=== PATIENT | female | born 1980 | race Caucasian/White ===

== ENCOUNTER → 2018-07-29 | Outpatient (CLI) | payer OTHER ==
--- NOTE | 2018-07-29 13:10 | US ---
EXAMINATION TYPE: US OB anatomy transabd DATE OF EXAM: 07/29/2018 COMPARISON: NONE HISTORY: O09.521 MATERNAL GREATER THAN 34 PREV Anatomy scan at 19 weeks at another facility . Advanced maternal age TECHNIQUE: Transabdominal (TA) EXAM MEASUREMENTS: GESTATIONAL AGE / DATING Physician Established: (28 weeks/1 days) EDC: 10/20/2018 Dates by First Scan: No previous at this facility Dates by Current Scan for: (28 weeks/6 days) EDC: 10/15/2018 SURVEY IUP: Single PLACENTA: Fundal PREVIA: No previa SATHYA: 12.5 cm Normal CERVICAL LENGTH (transabdominal: norm > 3.0cm): 3.8 cm BIOMETRY PRESENTATION: Breech LIE: Transverse lie with head maternal right BPD: 7.5 cm 29 weeks / 6 days HC: 27.8 cm 30 weeks / 3 days AC: 24.5 cm 28 weeks / 5 days FL: 5.3 cm 28 weeks / 2 days ESTIMATED WEIGHT IN GRAMS: 1296 grams ESTIMATED WEIGHT IN LBS/OZ: 2 lbs. 14 oz. WEIGHT PERCENTAGE BASED ON ESTABLISHED DATE: 65.6 % HC/AC: 1.13 Normal FL/AC: 21.78 Normal HEART RATE: 135 bpm RHYTHM: Normal ANATOMY SEEN (within normal limits): * Lateral Vent (< 1 cm) 0.4 cm * Cisterna Magna (< 1.1 cm) 0.5 cm * Nuchal Fold (< 0.6 cm) 0.4 cm * Cerebellum (varies with age) 3.3 cm Choroid Plexus (bilateral) Midline Falx Cavus Septi Pellucidi Four Chamber Heart Outflow tracts: LVOT/RVOT Stomach Situs Nose / Lips Diaphragm Kidneys (bilateral) Bladder Arms (bilateral) Legs (bilateral) Three Vessel Cord ANATOMY NOT SEEN due to position: Longitudinal Spine Transverse Spine Cord insert IMPRESSION: Viable IUP, measurements consistent with dates. Patient is scheduled for an OB call back for spine an d cord insert on 08/12/18.
== END | disposition home or self-care (01) ==
LOC: RADUSWWP 10:58
PROVIDERS: ATTEND Obstetrics & Gynecology
DX: O09.521 Supervision of elderly multigravida, first trimester (principal); Z3A.00 Weeks of gestation of pregnancy not specified
CPT/HCPCS: 76811

== ENCOUNTER → 2018-08-12 | Outpatient (CLI) | payer OTHER ==
--- NOTE | 2018-08-12 13:22 | US ---
EXAMINATION TYPE: US OB Call Back DATE OF EXAM: 08/12/2018 COMPARISON: NONE CLINICAL HISTORY: OB CALLBACK. spine and cord insert pics GESTATIONAL AGE / DATING Dates by Initial Survey Scan: (30 weeks/1 days) EDC: 10/20/2019 HEART RATE: 154 bpm RHYTHM: Normal ANATOMY SEEN (second anatomic survey look): Cord Insert : yes Longitudinal Spine: yes Transverse Spine: yes IMPRESSION: Call back for documentation of unremarkable appearing cord insertion, longitudinal spine, and transve rse spine in this single live intrauterine .
== END | disposition home or self-care (01) ==
LOC: RADUSWWP 12:14
PROVIDERS: ATTEND Obstetrics & Gynecology
DX: Z53.9 Procedure and treatment not carried out, unspecified reason (principal)

== ENCOUNTER → 2018-09-15 | Outpatient (CLI) | payer OTHER ==
--- NOTE | 2018-09-15 11:47 | US ---
EXAMINATION TYPE: US OB >= 14 wk fetus DATE OF EXAM: 09/15/2018 COMPARISON: 08/12/2018 CLINICAL HISTORY: Large for Dates, 3rd Trimester O36.63X0 TECHNIQUE: Transabdominal (TA) GESTATIONAL AGE / DATING Physician Established: (35 weeks/0 days) EDC: 10/20/2018 Dates by LMP: unsure Dates by First Scan: (35 weeks/0 days) EDC: 10/20/2018 Dates by Current Scan: (35 weeks/6 days) EDC: 10/14/2018 Beta HCG (if available): na SURVEY IUP: Single PLACENTA: Fundal PREVIA: No Previa SATHYA: 19 cm Normal CERVICAL LENGTH (transabdominal: norm > 3.0cm): 4.5 cm BIOMETRY PRESENTATION: Vertex LIE: Longitudinal BPD: 9.0 cm 36 weeks / 3 days HC: 32.3 cm 36 weeks / 4 days AC: 31.4 cm 35 weeks / 2 days FL: 6.8 cm 35 weeks / 1 days ESTIMATED WEIGHT IN GRAMS: 2694 grams ESTIMATED WEIGHT IN LBS/OZ: 5 lbs. 15 oz. WEIGHT PERCENTAGE BASED ON ESTABLISHED DATES: 62% HC/AC: 1.0 Normal FL/AC: 22 Normal HEART RATE: 148 bpm RHYTHM: Normal No anatomy assessment was not performed. IMPRESSION: Findings compatible with a 35 week 6 day gestation with an EDC of 10/14/2018 and heart rate of 148 bp m.
== END | disposition home or self-care (01) ==
LOC: RADUSWWP 10:52
PROVIDERS: ATTEND Obstetrics & Gynecology
DX: O36.63X0 Maternal care for excessive fetal growth, third trimester, not applicable or unspecified (principal); Z3A.35 35 weeks gestation of pregnancy
CPT/HCPCS: 76805

== ENCOUNTER 2018-10-13 06:00 | Inpatient (IN) | payer OTHER ==
[2018-10-13] MEDS ORDERED: METHYLERGONOVINE 0.2 MG/ML 1 ML AMP IM PRN (06:21)
[2018-10-13] MEDS ORDERED: TERBUTALINE 1 MG/ML VIAL SQ PRN (06:21)
[2018-10-13] MEDS ORDERED: CARBOPROST TROMETHAMINE 250 MCG/ML 1 ML AMP IM PRN (06:21)
[2018-10-13] MEDS ORDERED: OXYTOCIN 10 UNIT/ML 1 ML VIAL IM PRN (06:21)
[2018-10-13] MEDS ORDERED: LIDOCAINE 0.5% (PF) 5 MG/ML (50 ML SDV) SQ PRN (06:21)
[2018-10-13 06:32] VITALS: BMI 30.2
[2018-10-13] MEDS: LACTATED RINGERS 1,000 ML IV SCH ×3 (06:34→14:51)
[2018-10-13 06:41] LABS: Basophils # (A) 0.1 k/uL (0-0.2); Basophils % (A) 1 %; Eosinophils # (A) 0.1 k/uL (0-0.7); Eosinophils % (A) 1 %; HCT 35.5 % (34.0-46.0); Lymphocytes # (A) 1.7 k/uL (1.0-4.8); Lymphocytes % (A) 19 %; MCH 30.4 pg (25.0-35.0); MCHC 33.8 g/dL (31.0-37.0); Mean Platelet Volume 6.8; Monocytes # (A) 0.5 k/uL (0-1.0); Monocytes % (A) 6 %; Neutrophils # (A) 6.3 k/uL (1.3-7.7); Neutrophils % (A) 70 %; Platelet Count 179 k/uL (150-450); RBC 3.95 m/uL (3.80-5.40); RDW 13.9 % (11.5-15.5); WBC 8.9 k/uL (3.8-10.6)
[2018-10-13] MEDS: OXYTOCIN 20 UNITS/1000 ML NS 1,000 ML IV SCH ×2 (06:59→21:54)
[2018-10-13] MEDS ORDERED: ROPIVACAINE 5MG/ML 20ML VIAL ONE (14:25)
[2018-10-13] MEDS ORDERED: SODIUM CHLORIDE 0.9% 100 ML BAG ONE (14:25)
[2018-10-13] MEDS ORDERED: fentaNYL (PF) 50 MCG/ML 5 ML AMP ONE (14:25)
--- NOTE | 2018-10-13 14:55 | P.HPOB ---
History of Present Illness H&P Date: 10/13/18 Chief Complaint: Induction of Labor 38 year old presents at 39 weeks for induction of labor. Her cervix is 1/70 /-2. She is not shawn. heart tones 135-140 with moderate variability and reactive. Review of Systems All systems: negative Constitutional: Denies chills, Denies fever Eyes: denies blurred vision, denies pain Ears, nose, mouth and throat: Denies headache, Denies sore throat Cardiovascular: Denies chest pain, Denies shortness of breath Respiratory: Denies cough Gastrointestinal: Denies abdominal pain, Denies diarrhea, Denies nausea, Denies vomiting Genitourinary: Denies dysuria, Denies hematuria Musculoskeletal: Denies myalgias Integumentary: Denies pruritus, Denies rash Neurological: Denies numbness, Denies weakness Psychiatric: Denies anxiety, Denies depression Endocrine: Denies fatigue, Denies weight change Past Medical History Past Medical History: Thyroid Disorder Additional Past Medical History / Comment(s): OB history: one vaginal delivery. 3 miscarriages. THis is her fifth . She was a transfer of care to dc at 24 weeks. AB+, abs neg, RUb Imm, treponemal ab neg, Hep B neg, neg maternity 21. normal 1hr, GBS neg. History of Any Multi-Drug Resistant Organisms: None Reported Past Surgical History: Tonsillectomy Additional Past Surgical History / Comment(s): Left Knee surgery, [place] tooth extraction, D&C Past Anesthesia/Blood Transfusion Reactions: Postoperative Nausea & Vomiting ( PONV) Additional Past Anesthesia/Blood Transfusion Reaction / Comment(s): Hard time waking up Past Psychological History: No Psychological Hx Reported Smoking Status: Never smoker Past Alcohol Use History: None Reported Past Drug Use History: None Reported - Past Family History Father Family Medical History: COPD Mother Family Medical History: Diabetes Mellitus, Thyroid Disorder Medications and Allergies Home Medications Medication Instructions Recorded Confirmed Type Acyclovir 400 tab PO DAILY 10/13/18 10/13/18 History Folic Acid 1 tablet PO DAILY 10/13/18 10/13/18 History Levothyroxine Sodium [Levo-T] 75 mcg PO DAILY 10/13/18 10/13/18 History 78/Iron/Folate 1/Dha 1 tab PO DAILY 10/13/18 10/13/18 History [Prenate Dha Softgel] Allergies Allergy/AdvReac Type Severity Reaction Status Date / Time codeine Allergy Hallucinati Verified 10/13/18 06:17 ons Exam Osteopathic Statement: *. No significant issues noted on an osteopathic structural exam other than those noted in the History and Physical/Consult. Vital Signs Temp Pulse Resp BP 10/13/18 06:22 97.3 F L 78 16 116/66 Intake and Output 10/12/18 10/13/18 10/13/18 22:59 06:59 14:59 Other: Weight 77.564 kg HEart: RRR Lungs: CTAB Abdomen: soft, nontender Extremeties: neg ruslan's Results Result Diagrams: 10/13/18 06:30 Assessment and Plan (1) Normal labor Current Visit: Yes Status: Acute Code(s): O80 - ENCOUNTER FOR FULL-TERM UNCOMPLICATED DELIVERY; Z37.9 - OUTCOME OF DELIVERY, UNSPECIFIED SNOMED Code(s ): 87614955 Plan: 1. admit to [facility] 2. induction of labor with amniotomy and pitocin
[2018-10-13] MEDS ORDERED: ROPIVACAINE 100 MG, fentaNYL (PF) 200 MCG in SODIUM CHLORIDE 0.9% 76 ML EPIDURAL ONE (14:57)
[2018-10-13] MEDS ORDERED: ZOLPIDEM 5 MG TAB PO PRN (20:15)
[2018-10-13] MEDS ORDERED: OXYTOCIN 20 UNITS/1000 ML NS 1,000 ML IV SCH (20:15)
[2018-10-13] MEDS ORDERED: BENZOCAINE/MENTHOL SPRAY 1 GM/SPRAY AEROSOL TOPICAL PRN (20:15)
[2018-10-13] MEDS ORDERED: LANOLIN CREAM 5 GM TUBE TOPICAL PRN (20:15)
[2018-10-13] MEDS ORDERED: SIMETHICONE 80 MG CHEWABLE PO PRN (20:15)
[2018-10-13] MEDS ORDERED: HYDROCORTISONE 2.5% RECTAL CREAM 30 GM TUBE RECTAL PRN (20:15)
[2018-10-13] MEDS ORDERED: diphenhydrAMINE 25 MG CAP PO PRN (20:15)
[2018-10-13] MEDS ORDERED: diphenhydrAMINE 50 MG/ML 1 ML VIAL IVP PRN ×2 (20:15)
[2018-10-13] MEDS ORDERED: diphenhydrAMINE 50 MG CAP PO PRN (20:15)
[2018-10-13] MEDS ORDERED: WITCH HAZEL 1 EACH MED..PAD TOPICAL PRN (20:15)
--- NOTE | 2018-10-13 20:19 | P.PROBDLV ---
Vaginal Delivery Note - . Vaginal Delivery Note: 38-year-old presents at 39 weeks for induction of labor. Her cervix is 1 cm dilated, 70% effaced, and -2 station. She is not shawn. heart tones 135-140 with moderate variability and reactive. Pitocin was started. Amniotomy was performed at 7:39 AM, clear fluid noted. She progressed slowly throughout the day, when she was uncomfortable and about 3 cm dilated she did get an epidural. Her cervix was completely dilated at 1936. She pushed, and delivered a viable female infant over intact perineum under epidural anesthesia at 1959. Head delivered OA, nuchal cord 1 easily reduced, anterior shoulder delivered gentle downward guidance followed by posterior shoulder and rest of body. Nose and mouth bulb suctioned, cord clamped and cut, placed on mother's abdomen. Apgars 8, 9, weight pending. Placenta delivered spontaneously, intact with three-vessel cord at 2003. Vagina, cervix, and perineum were inspected. Second-degree midline laceration was repaired with 3- 0 Vicryl. Estimated blood loss 200 mL. Mother and baby in stable condition.
[2018-10-13] MEDS: IBUPROFEN 600 MG TAB PO PRN (20:38)
[2018-10-14] MEDS: IBUPROFEN 600 MG TAB PO PRN ×3 (05:24→18:58)
[2018-10-14] MEDS: ACYCLOVIR 200 MG CAP PO SCH (09:03)
[2018-10-14] MEDS: LEVOTHYROXINE 75 MCG TAB PO SCH (09:03)
[2018-10-14] MEDS: SENNOSIDES-DOCUSATE SODIUM 1 EACH TAB PO SCH ×2 (09:06→21:59)
[2018-10-14] MEDS: FOLIC ACID 1 MG TAB PO SCH (11:56)
[2018-10-14] MEDS: PRENATAL VIT-IRON-FOLIC ACID 1 EACH CAP PO SCH (11:56)
[2018-10-14] MEDS: ACETAMINOPHEN TAB 325 MG TAB PO PRN ×2 (15:40→23:41)
[2018-10-14 23:54] VITALS: RESP 16
[2018-10-15] MEDS: IBUPROFEN 600 MG TAB PO PRN (04:05)
[2018-10-15] MEDS: ACETAMINOPHEN TAB 325 MG TAB PO PRN (06:43)
[2018-10-15] MEDS: LEVOTHYROXINE 75 MCG TAB PO SCH (06:43)
[2018-10-15] MEDS: SENNOSIDES-DOCUSATE SODIUM 1 EACH TAB PO SCH (07:57)
[2018-10-15] MEDS: ACYCLOVIR 200 MG CAP PO SCH (07:58)
[2018-10-15] MEDS: FOLIC ACID 1 MG TAB PO SCH (11:30)
[2018-10-15] MEDS: PRENATAL VIT-IRON-FOLIC ACID 1 EACH CAP PO SCH (11:30)
[2018-10-15 17:41] VITALS: BP 121/70; PULSE 78; TEMP 97.8
== END 2018-10-15 17:25 | disposition home or self-care (01) | DRG 807 ==
LOC: 4FBP 06:15
PROVIDERS: ADMIT Obstetrics & Gynecology; ATTEND Obstetrics & Gynecology
PROC: 3E0R3NZ Introduction of Analgesics, Hypnotics, Sedatives into Spinal Canal, Percutaneous Approach (ICD-10-PCS; principal; 2018-10-13)
PROC: 0KQM0ZZ Repair Perineum Muscle, Open Approach (ICD-10-PCS; principal; 2018-10-13)
PROC: 10907ZC Drainage of Amniotic Fluid, Therapeutic from Products of Conception, Via Natural or Artificial Opening (ICD-10-PCS; principal; 2018-10-13)
PROC: 3E033VJ Introduction of Other Hormone into Peripheral Vein, Percutaneous Approach (ICD-10-PCS; principal; 2018-10-13)
PROC: 00HU33Z Insertion of Infusion Device into Spinal Canal, Percutaneous Approach (ICD-10-PCS; principal; 2018-10-13)
PROC: 10E0XZZ Delivery of Products of Conception, External Approach (ICD-10-PCS; principal; 2018-10-13)
DX: O69.81X0 Labor and delivery complicated by cord around neck, without compression, not applicable or unspecified (principal); Z37.0 Single live birth; O70.1 Second degree perineal laceration during delivery; Z3A.39 39 weeks gestation of pregnancy; Z82.5 Family history of asthma and other chronic lower respiratory diseases; Z83.3 Family history of diabetes mellitus; O99.284 Endocrine, nutritional and metabolic diseases complicating childbirth; E07.9 Disorder of thyroid, unspecified; Z79.3 Long term (current) use of hormonal contraceptives; Z79.899 Other long term (current) drug therapy; Z88.5 Allergy status to narcotic agent
CPT/HCPCS: 85025; 86850; 86900; 86901

== ENCOUNTER 2019-01-26 06:59 | Day surgery (SDC) | payer BC, OTHER ==
[2019-01-20 15:01] VITALS: BMI 26.0
[~2019-01-26 06:59] MED LIST: DEXAMETHASONE SOD PHOSPHATE 10 MG/ML 1 ML VIAL IV ONE; LACTATED RINGERS 1,000 ML IV SCH; MIDAZOLAM (PF) 2 MG/2 ML VIAL IV PRN; ONDANSETRON 4 MG/2 ML VIAL IVP ONE; Pre Op ABX Message 1 EACH MISC MISCELLANE ONE; SCOPOLAMINE 1.5MG/72HR PATCH TRANSDERM ONE; fentaNYL (PF) 50 MCG/ML 2 ML AMP IV PRN
[2019-01-26] MEDS ORDERED: LIDOCAINE 1% 20 ML VIAL (10MG/ML) FOR IV START INTRADERMA ONE (07:35)
--- NOTE | 2019-01-26 07:44 | P.HPOB ---
History of Present Illness H&P Date: 01/26/19 Chief Complaint: AUB 39 year old presents for D&C hysteroscopy. She has been bleeding or spotting since her delivery a few months ago. US showed some tissue and calcifications at the fundus in the endometrium. Today she is here for D&C to remove that tissue. Review of Systems All systems: negative Constitutional: Denies chills, Denies fever Eyes: denies blurred vision, denies pain Ears, nose, mouth and throat: Denies headache, Denies sore throat Cardiovascular: Denies chest pain, Denies shortness of breath Respiratory: Denies cough Gastrointestinal: Denies abdominal pain, Denies diarrhea, Denies nausea, Denies vomiting Genitourinary: Denies dysuria, Denies hematuria Musculoskeletal: Denies myalgias Integumentary: Denies pruritus, Denies rash Neurological: Denies numbness, Denies weakness Psychiatric: Denies anxiety, Denies depression Endocrine: Denies fatigue, Denies weight change Past Medical History Past Medical History: Thyroid Disorder Additional Past Medical History / Comment(s): OB history: two vaginal deliveries. 3 miscarriages. Has vaginal bleeding since the delivery 3 months ago. History of Any Multi-Drug Resistant Organisms: None Reported Past Surgical History: Tonsillectomy Additional Past Surgical History / Comment(s): Left Knee surgery, [place] tooth extraction, D&C Past Anesthesia/Blood Transfusion Reactions: Postoperative Nausea & Vomiting (PONV) Additional Past Anesthesia/Blood Transfusion Reaction / Comment(s): Hard time waking up Smoking Status: Never smoker - Past Family History Father Family Medical History: COPD Mother Family Medical History: Diabetes Mellitus, Thyroid Disorder Medications and Allergies Home Medications Medication Instructions Recorded Confirmed Type Acyclovir 400 tab PO DAILY 10/13/18 01/26/19 History Folic Acid 1 tablet PO DAILY 10/13/18 01/26/19 History Levothyroxine Sodium [Levo-T] 75 mcg PO DAILY 10/13/18 01/26/19 History 78/Iron/Folate 1/Dha 1 tab PO DAILY 10/13/18 01/26/19 History [Prenate Dha Softgel] Levonorgestrel-Ethin Estradiol 1 tab PO DAILY 01/20/19 01/26/19 History [Levora-28 Tablet] Allergies Allergy/AdvReac Type Severity Reaction Status Date / Time codeine Allergy Hallucinati Verified 01/26/19 07:19 ons shellfish derived [Shellfish] Allergy Swelling Verified 01/26/19 07:19 Exam Osteopathic Statement: *. No significant issues noted on an osteopathic structural exam other than those noted in the History and Physical/Consult. Vital Signs Temp Pulse Resp BP Pulse Ox 01/26/19 07:17 97.5 F L 82 16 131/74 98 Heart: RRR Lungs: CTAB Abdomen: soft, nontender Extremeties: neg ruslan's Assessment and Plan (1) Abnormal uterine bleeding Current Visit: Yes Status: Acute Code(s): N93.9 - ABNORMAL UTERINE AND VAGINAL BLEEDING, UNSPECIFIED SNOMED Code(s): 73216302662502 Plan: 1. D&C hysteroscopy
[2019-01-26] MEDS ORDERED: KETOROLAC 30 MG/ML 1 ML VIAL ONE (07:50)
[2019-01-26] MEDS ORDERED: LIDOCAINE 1% INJ 10MG/ML (20 ML MDV) ONE (07:50)
[2019-01-26] MEDS ORDERED: PROPOFOL 10 MG/ML 20 ML VIAL IV ONE (07:50)
[2019-01-26] MEDS ORDERED: fentaNYL (PF) 50 MCG/ML 2 ML AMP ONE (07:50)
[2019-01-26] MEDS ORDERED: MIDAZOLAM 2 MG/2 ML VIAL ONE (07:50)
[2019-01-26 08:39] VITALS: TEMP 98.7
--- NOTE | 2019-01-26 08:43 | P.OP ---
Date of Procedure: 01/26/19 Preoperative Diagnosis: 1. Abnormal uterine bleeding-suspect retained products Postoperative Diagnosis: 1. Abnormal uterine bleeding-suspect retained products Procedure(s) Performed: D&C hysteroscopy Anesthesia: MATT Surgeon: Meryl Mari Estimated Blood Loss (ml): 40 IV fluids (ml): 200 Urine output (ml): 50 Pathology: other (endometrial currettings) Condition: stable Disposition: PACU Operative Findings: Uterus sounded to 9cm, there was some bright white tissue gleaming at the fundus of the uterus. Both ostia visualized. Description of Procedure: Patient was taken to the operating room where general anesthesia was obtained without difficulty. She was prepped and draped in normal sterile fashion dorsal lithotomy position, legs placed in candycane stirrups. Bladder was drained of all urine. Weighted speculum placed in vagina and the anterior lip of cervix was grasped with single-tooth tenaculum. The uterus sounded 9 cm. The cervix was dilated to #8 Hegar dilator. Hysteroscopy was then performed, both ostia visualized, there was some white tissue at the fundus of the uterus. Sharp curet was then gently used to obtain endometrial curettings, the fundus felt irregular and like there were some hard pieces there, this tissue was removed from the cervix. All instruments were then removed from the vagina. The cervix was bleeding at the puncture site of the single-toothed tenaculum. 3-0 Vicryl was used in a [id number] fashion to obtain hemostasis. Patient to our procedure well, sponge management counts correct 2. She was taken to recovery in stable condition.
[2019-01-26 08:48] VITALS: RESP 16
[2019-01-26 09:50] VITALS: BP 115/67; PULSE 66
== END 2019-01-26 10:25 | disposition home or self-care (01) ==
LOC: OR 06:59
PROVIDERS: ATTEND Obstetrics & Gynecology
DX: N85.8 Other specified noninflammatory disorders of uterus (principal); E07.9 Disorder of thyroid, unspecified; Z79.3 Long term (current) use of hormonal contraceptives; Z79.890 Hormone replacement therapy; Z79.899 Other long term (current) drug therapy; Z88.5 Allergy status to narcotic agent; Z91.013 Allergy to seafood
CPT/HCPCS: 58558; 81025; 88305; J2250; J1100; J2405; J2001; J3010; J1885; J2704

== ENCOUNTER → 2019-06-25 | Outpatient (CLI) | payer BC, OTHER ==
[2019-06-28 11:23] LABS: Cow's Milk IgE Class CLASS 0; Crab IgE <0.35 kU/L (<0.35); Crab IgE Class CLASS 0; Egg White IgE <0.35 kU/L (<0.35); Lobster IgE <0.35 kU/L (<0.35); Lobster IgE Class CLASS 0; Peanut IgE <0.35 kU/L (<0.35); Potato IgE <0.35 kU/L (<0.35); Potato IgE Class CLASS 0; Salmon IgE <0.35 kU/L (<0.35); Salmon IgE Class CLASS 0; Soybean IgE <0.35 kU/L (<0.35)
== END | disposition home or self-care (01) ==
LOC: LABWHC1 11:45
PROVIDERS: ATTEND Otolaryngology
DX: L50.0 Allergic urticaria (principal); J30.89 Other allergic rhinitis; B44.89 Other forms of aspergillosis
CPT/HCPCS: 36415; 86003

== ENCOUNTER → 2019-09-29 | Outpatient (CLI) | payer BC, OTHER ==
--- NOTE | 2019-09-29 11:02 | MR ---
EXAMINATION TYPE: MR brain wo/w con DATE OF EXAM: 09/29/2019 COMPARISON: None HISTORY: Migraines TECHNIQUE: Multiplanar, multisequence images of the brain and brainstem is performed without and with IV contras t, utilizing 7 mL intravenous Gadavist . FINDINGS: Diffusion weighted images demonstrate no evidence of a recent infarct or other diffusion ab normality. There is no extra-axial fluid collection or significant white matter signal abnormality. The ventricular system and cisternal spaces are normal in size and appearance. The brain volume is age appropriate, mild asymmetry in the appearance of the occipital lobes is likely congenital variant , left occipital lobe is enlarged as compared to right, question a small arachnoid cyst in the railway switchman ior fossa measuring 3.6 x 1.8 x 3.8 cm.. Midline structures demonstrate normal morphology. The craniocervical junction appears within normal limits. Post contrast images demonstrate no abnormal enhancement. The dural venous sinuses appear pa tent. The visualized sinuses are clear and the globes are intact. 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
--- NOTE | 2019-09-29 11:12 | MR ---
EXAMINATION TYPE: MR angio head wo con DATE OF EXAM: 09/29/2019 COMPARISON: MR brain same date HISTORY: Migraines TECHNIQUE: Time of flight images focusing on the [place] of [place] were performed without contrast. Th ree-dimensional reconstructions on an alternate workstation FINDINGS: Anterior and posterior circulation are intact. There is no evident aneurysm, dissection, or embolus. IMPRESSION: Unremarkable brain MRA
== END | disposition home or self-care (01) ==
LOC: RADMRIMAIN 09:35
PROVIDERS: ATTEND Family Medicine
DX: G81.90 Hemiplegia, unspecified affecting unspecified side (principal); G43.009 Migraine without aura, not intractable, without status migrainosus; H53.469 Homonymous bilateral field defects, unspecified side; R42 Dizziness and giddiness
CPT/HCPCS: 70544; 70553; A9585

== ENCOUNTER → 2020-08-24 | Outpatient (CLI) | payer OTHER ==
--- NOTE | 2020-08-25 06:16 | MR ---
EXAMINATION TYPE: MR brain wo con DATE OF EXAM: 08/24/2020 COMPARISON: Prior MRI brain September 29, 2019. HISTORY: Follow up arachnoid cyst, prior abnormal MRI. TECHNIQUE: Multiplanar, multisequence imaging of the brain and brainstem is performed without IV cont rast. FINDINGS: Diffusion weighted images demonstrate no evidence of a recent infarct or other diffusion abnormality. There is no extraaxial fluid collection or significant white matter signal abnormality. The ventricu lar system and cisternal spaces are normal in size and appearance. The brain volume is age appropria te. Persistent prominent CSF, possible arachnoid cyst versus tyrel cisterna magna in the midline of th e posterior aspect posterior fossa measuring 3.4 x 1.8 cm x 2.3 cm axial image 8 and coronal image 26 . Stable, I favor the latter given crossing vessels and dura on this and prior study. Midline structures redemonstrate normal morphology. The craniocervical junction appears within ana l limits. Normal vascular flow voids are present. The visualized sinuses are clear and the globes are intact. IMPRESSION: As above. No significant interval change from prior MRI.
== END | disposition home or self-care (01) ==
LOC: RADMRIMAIN 16:31
PROVIDERS: ATTEND Family Medicine
DX: G43.009 Migraine without aura, not intractable, without status migrainosus (principal)
CPT/HCPCS: 70551

== ENCOUNTER → 2023-09-05 | Outpatient (CLI) | payer OTHER ==
--- NOTE | 2023-09-05 22:11 | MR ---
EXAMINATION TYPE: MR brain wo con DATE OF EXAM: 09/05/2023 10:04 PM CLINICAL INDICATION:Female, 43 years old with history of G93.0 cerebral cysts; PHH, Recheck arachnoid cyst COMPARISON: . TECHNIQUE: Multi planar, multi sequence imaging was performed through the brain including: T1, T2, In version recovery, Diffusion weighted imaging, and gradient echo imaging. No gadolinium was given. FINDINGS: The foreman-white junctions, ventricular system, and cisterns appear unremarkable. Scattered foci of hi gh T2 signal intensity are seen within the periventricular white matter. Midline structures show no a bnormality. Diffusion-weighted imaging shows no evidence of restricted diffusion. The susceptibility weighted images do not reveal any evidence for micro-hemorrhage. The bone marrow signal is within normal limits. Paranasal sinuses and mastoid air cells: No significant paranasal sinus disease. Visualized orbits: Orbital contents are intact. IMPRESSION: 1. No evidence of intracranial mass or acute/subacute infarct. 2. Nonspecific white matter changes, likely secondary to small vessel ischemic disease.
== END | disposition home or self-care (01) ==
LOC: RADMRIMAIN 21:00
PROVIDERS: ATTEND Family Medicine
DX: G93.0 Cerebral cysts (principal); R90.82 White matter disease, unspecified
CPT/HCPCS: 70551

== ENCOUNTER → 2023-11-14 | Outpatient (CLI) | payer OTHER ==
--- NOTE | 2023-11-18 11:54 | MM ---
Reason for Exam: Screening (asymptomatic). Baseline mammogram. Patient History: Menarche at age 12. First Full-Term at age 28. Patient has history of breast feeding. Currently using Hormonal Contraceptives, starting at age 39. Risk Values: Rashmi 5 year model risk: 0.9%. NCI Lifetime model risk: 10.7%. Prior Study Comparison: Patient's first Mammogram. No prior studies available for comparison. Tissue Density: The breast tissue is heterogeneously dense. This may lower the sensitivity of mammography. Findings: Analyzed By CAD. There is no suspicious group of microcalcifications or new suspicious mass. Overall Assessment: Negative, BI-RAD 1 Management: Screening Mammogram of both breasts in [address] [facility] will attempt to contact patient to return for supplemental views and ultrasound if indicated. Patient should continue monthly self-breast exams. A clinical breast exam by your physician is recommended on an annual basis. This exam should not preclude additional follow-up of suspicious palpable abnormalities. Note on Rashmi scores and lifetime risk: 1. A Rashmi score greater than 3% is considered moderate risk. If this is the case, consider specialist referral to assess eligibility for a risk reducing agent. 2. If overall lifetime risk for the development of breast cancer is 20% or higher, the patient may qualify for future screening with alternating mammogram and breast MRI. Electronically signed and approved by: Jasiel Nova DO
== END | disposition home or self-care (01) ==
LOC: RADMAMWWP 14:11
PROVIDERS: ATTEND Obstetrics & Gynecology
DX: Z12.31 Encounter for screening mammogram for malignant neoplasm of breast (principal)
CPT/HCPCS: 77063; 77067

== ENCOUNTER → 2025-03-01 | Outpatient (CLI) | payer OTHER ==
--- NOTE | 2025-03-01 12:59 | MR ---
EXAMINATION TYPE: MR brain wo con DATE OF EXAM: 03/01/2025 11:36 AM COMPARISON: None. CLINICAL INDICATION: Female, 45 years old with history of G93.89 DISORDERS OF BRAIN R20.2 PARESTHESIA OF SKI, Tingling right side of body, right sided neck pain. TECHNIQUE: Multiplanar and multispin-echo imaging of the brain was performed . FINDINGS: The ventricles, basal cisterns and sulci overlying the cerebral convexities are within normal limits. There is no evidence for midline shift or mass effect. Acute intracranial hemorrhage or extra-axial collection is not evident. The brain parenchyma reveals no abnormal increased signal. No acute edema is identified. The paranasal sinuses and mastoid air cells are well-aerated. IMPRESSION: Unremarkable MRI of the brain. [facility], , 03/01/2025 12:56 PM
== END | disposition home or self-care (01) ==
LOC: RADMRIMAIN 11:05
PROVIDERS: ATTEND Family Medicine
DX: G93.89 Other specified disorders of brain (principal); R20.2 Paresthesia of skin; M54.2 Cervicalgia
CPT/HCPCS: 70551